=== PATIENT | male | born 1975 | race Caucasian/White ===

== ENCOUNTER 2023-05-25 09:27 | Outpatient (AMB) | payer OTHER, SELFPAY ==
--- NOTE | 2023-05-25 09:35 | AM.OFFWIN_ITS ---
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 He states the pain is always there even if he isnt doing anything. 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 Reports this started in his wrist, and radiates forearm. He denies any trauma to area, however reports he has been playing with his daughters kitten who playfully scratched him in the wrist. Cat does have all vaccinations. Denies any fever or chills. History of mechanical heart valve, on coumadin. [facility] Social History Patient Tobacco Use Status: Never used Tobacco Review of Systems Const All systems reviewed & are unremarkable except as noted in HPI and below Physical Exam Vital Signs: Last Vital Signs Pulse 70 05/25/23 09:37 BP 120/58 L 05/25/23 09:37 Pulse Ox 97 05/25/23 09:37 Oxygen Delivery Method Room Air 05/25/23 09:37 BMI result Body Mass Index 23.3 Const General: cooperative, healthy appearing, comfortable and no acute distress Neck Neck: Yes no lymphadenopathy Resp Effort & Inspection: normal respiratory effort and able to speak in complete sentences Auscultation: clear to auscultation bilaterally Cardio Jugular venous distension: no JVD Palpation: normal PMI Rate: regular rate Rhythm: regular rhythm Skin Other: Small, well-healed scratch on palmar aspect of left wrist, with mild warmth, redness, and swelling extending up arm. Good cap refill, +radial pulse, good ROM wrist and hand. Psych Appearance: grossly normal Mental Status: mental status grossly normal Speech and movement: Normal speech and movement present Assessment & Plan Assessment & Plan (1) Cellulitis of left forearm: Code(s): L03.114 - Cellulitis of left upper limb (2) Cat scratch of forearm: Code(s): S50.819A - Abrasion of unspecified forearm, initial encounter; W55.03XA - Scratched by cat, initial encounter Qualifiers: Encounter type: initial encounter Laterality: left Qualified Code(s): S50.812A - Abrasion of left forearm, initial encounter; W55.03XA - Scratched by cat, initial encounter Plan: Per recommendations, will start patient on azithromycin for cellulitis, likely due to recent cat scratch. We reviewed indications, use, possible side effects with patient. Advised to return to the clinic if symptoms do not improve treatment, or if new symptoms develop/symptoms worsen. He verbalizes understanding and agrees to plan. Medications: New azithromycin For 250 mg dose pack: take 500 mg today (day 1), then 250 mg for 4 days (days 2-5) PO 6 tabs 0RF L03.114 - Cellulitis of left upper limb, S50.812A - Abrasion of left forearm, initial encounter, W55.03XA - Scratched by cat, initial encounter Coding Level of Care Code Est Pt Level 3 (61052) Diagnoses Cellulitis of left forearm L03.114 Cat scratch of left forearm, initial encounter S50.812A; W55.03XA Encounter type: initial encounter Laterality: left
[2023-05-25 09:37] VITALS: BP 120/58; PULSE 70; O2SAT 97; BMI 23.3
== END 2023-05-25 10:33 | disposition home or self-care (01) ==
PROVIDERS: PCP Internal Medicine Geriatric Medicine; Visit Provider Nurse Practitioner Family
DX: L03.114 Cellulitis of left upper limb (principal); S50.812A Abrasion of left forearm, initial encounter; W55.03XA Scratched by cat, initial encounter
CPT/HCPCS: 99213